=== PATIENT | male | born 1990 | race African-American/Black ===

== ENCOUNTER 2017-03-06 16:56 | Inpatient (IN) | payer SELFPAY ==
[2017-03-06] MEDS ORDERED: IOHEXOL 350 MG/ML 10 ML VIAL (for RAD DIAG) IVCONTRAST ONE (16:57)
[2017-03-06 17:00] VITALS: O2SAT 98
[2017-03-06] MEDS ORDERED: MORPHINE SULFATE 8 MG/ML INJ ONE (17:04)
[2017-03-06] MEDS ORDERED: ceFAZolin 2 GM PREMIX 50 ML ONE (17:04)
[2017-03-06] MEDS ORDERED: ONDANSETRON HCL 4 MG/2 ML VIAL ONE (17:05)
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
[2017-03-06 17:35] LABS: AUTOMATED NEUTROPHIL # 10.5 TH/MM3 (1.8-7.7); BASOPHIL # 0.1 TH/MM3 (0-0.2); BASOPHIL % 0.8 % (0.0-2.0); EOSINOPHIL # 0.6 TH/MM3 (0-0.4); EOSINOPHIL % 4.7 % (0.0-4.0); HEMATOCRIT 42.5 % (39.0-51.0); HEMO FLAGS DIFF FINAL; LYMPH % 11.6 % (9.0-44.0); LYMPHOCYTE # 1.6 TH/MM3 (1.0-4.8); MEAN CELL VOLUME 89.8 FL (80.0-100.0); MEAN CORPUSCULAR HGB CONC 33.4 % (32.0-36.0); NEUT % 76.9 % (16.0-70.0); PLATELET COUNT 241 TH/MM3 (150-450); RED BLOOD COUNT 4.73 MIL/MM3 (4.50-5.90); WHITE BLOOD COUNT 13.7 TH/MM3 (4.0-11.0)
[2017-03-06 17:38] LABS: I-STAT POTASSIUM 3.3 MMOL/L (3.5-4.9)
[2017-03-06 17:43] LABS: APTT (PATIENT) 26.5 SEC (24.3-30.1); INTERNATIONAL NORMALIZED RATIO 1.1 RATIO
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
[2017-03-06] MEDS ORDERED: ONDANSETRON HCL 4 MG/2 ML VIAL IV PRN (18:15)
[2017-03-06] MEDS ORDERED: ACETAMINOPHEN/HYDROcodone 325 MG/5 MG TAB PO PRN (18:15)
[2017-03-06] MEDS ORDERED: ENALAPRILAT 1.25 MG/ML VIAL IV PRN (18:15)
[2017-03-06] MEDS ORDERED: HYDROmorphone HCL PF 1 MG/ML VIAL IVP PRN (18:15)
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
[2017-03-06 20:04] VITALS: BP 123/78; PULSE 92; RESP 18; O2SAT 100
[2017-03-06] MEDS: SODIUM CHLOR 0.9% 1000 ML INJ 1,000 ML IV SCH (20:56)
[2017-03-06] MEDS: PANTOPRAZOLE SODIUM 40 MG VIAL IVP SCH (20:57)
[2017-03-06] MEDS: DOCUSATE SODIUM 100 MG CAP PO SCH (20:57)
[2017-03-06 21:30] VITALS: BP 133/77; PULSE 105; RESP 18; TEMP 99.3; O2SAT 99
[2017-03-06] MEDS: ACETAMINOPHEN/HYDROcodone 325 MG/5 MG TAB PO PRN (22:07)
[2017-03-06] MEDS: ceFAZolin 2 GM PREMIX 50 ML IV SCH (23:59)
[2017-03-07 00:14] VITALS: BP 112/73; PULSE 98; RESP 18; TEMP 100.4; O2SAT 96
[2017-03-07] MEDS: SODIUM CHLORIDE 0.9% FLUSH 5 ML FLUSH IVF SCH (00:14)
[2017-03-07] MEDS: GENTAMICIN 80 MG PREMIX 100 ML IV SCH ×3 (00:37→17:33)
[2017-03-07] MEDS ORDERED: METOPROLOL TARTRATE 25 MG TAB PO PRN (02:30)
[2017-03-07] MEDS ORDERED: LACTATED RINGER'S 1000 ML IV PRN (02:30)
[2017-03-07] MEDS ORDERED: SODIUM CHLORID 0.9% 500 ML IV PRN (02:30)
[2017-03-07] MEDS ORDERED: CHLORHEXIDINE GLUCONATE 2 % 1 PACK (2 CLOTHS) TOPICAL PRN (02:30)
[2017-03-07] MEDS ORDERED: INSULIN HUMAN REGULAR 1,000 UNITS/10 ML VIAL SQ PRN (02:30)
[2017-03-07] MEDS ORDERED: POVIDONE IODINE 5% (ANTISEPSIS KIT) 4 APPLICATIONS EACH NARE PRN (02:30)
[2017-03-07] MEDS: ACETAMINOPHEN/HYDROcodone 325 MG/5 MG TAB PO PRN (04:11)
[2017-03-07 04:20] VITALS: BP 119/76; PULSE 99; RESP 18; TEMP 100.3; O2SAT 98
[2017-03-07] MEDS: SODIUM CHLOR 0.9% 1000 ML INJ 1,000 ML IV SCH ×2 (04:27→12:48)
[2017-03-07 05:20] LABS: AUTOMATED NEUTROPHIL # 9.8 TH/MM3 (1.8-7.7); BASOPHIL # 0.1 TH/MM3 (0-0.2); BASOPHIL % 0.5 % (0.0-2.0); EOSINOPHIL # 0.1 TH/MM3 (0-0.4); EOSINOPHIL % 1.1 % (0.0-4.0); HEMATOCRIT 40.9 % (39.0-51.0); HEMO FLAGS DIFF FINAL; LYMPH % 6.9 % (9.0-44.0); LYMPHOCYTE # 0.8 TH/MM3 (1.0-4.8); MEAN CELL VOLUME 91.1 FL (80.0-100.0); MEAN CORPUSCULAR HEMOGLOBIN 29.1 PG (27.0-34.0); MONO % 8.7 % (0.0-8.0); NEUT % 82.8 % (16.0-70.0); PLATELET COUNT 219 TH/MM3 (150-450); RED BLOOD COUNT 4.49 MIL/MM3 (4.50-5.90); RED CELL DISTRIBUTION WIDTH 13.8 % (11.6-17.2); WHITE BLOOD COUNT 11.9 TH/MM3 (4.0-11.0)
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
[2017-03-07 05:37] LABS: ALKALINE PHOSPHATASE 122 U/L (45-117); TOTAL BILIRUBIN ADULT 0.7 MG/DL (0.2-1.0)
[2017-03-07 05:40] LABS: ALT (GPT) 22 U/L (12-78); ANION GAP 9 MEQ/L (5-15); AST (GOT) 24 U/L (15-37); BICARBONATE 25.7 MEQ/L (21.0-32.0); BLOOD UREA NITROGEN 10 MG/DL (7-18); CHLORIDE 106 MEQ/L (98-107); GLOMERULAR FILTRATION RATE 93 ML/MIN (>89); POTASSIUM 3.7 MEQ/L (3.5-5.1); SODIUM (NA) 141 MEQ/L (136-145)
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
[2017-03-07] MEDS: ceFAZolin 2 GM PREMIX 50 ML IV SCH ×2 (07:39→12:46)
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
[2017-03-07 08:00] VITALS: BP 127/79; PULSE 86; RESP 16; TEMP 99.1; O2SAT 99
[2017-03-07] MEDS ORDERED: FAMOTIDINE 20 MG/2 ML VIAL ONE (08:01)
[2017-03-07] MEDS ORDERED: DEXAMETHASONE SOD PHOS 4 MG/ML VIAL ONE (08:01)
[2017-03-07] MEDS ORDERED: GENTAMICIN SULFATE 80 MG/2 ML VIAL ONE (08:21)
[2017-03-07] MEDS: DOCUSATE SODIUM 100 MG CAP PO SCH (09:00)
[2017-03-07] MEDS: LACTATED RINGER'S 1000 ML INJ 1,000 ML IV SCH ×2 (09:46→10:30)
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
[2017-03-07] MEDS ORDERED: Post-op Orders (for Pharmacy) MISC XX ONE (10:00)
[2017-03-07] MEDS ORDERED: MORPHINE SULFATE 4 MG/ML INJ IV PUSH PRN (10:00)
[2017-03-07] MEDS ORDERED: NALOXONE HCL 0.4 MG/ML AMP IV PRN (10:00)
[2017-03-07] MEDS ORDERED: SODIUM CHLORIDE 0.9% FLUSH 5 ML FLUSH IVF PRN (10:00)
[2017-03-07] MEDS ORDERED: fentaNYL CITRATE 250 MCG/5 ML AMP ONE (10:23)
[2017-03-07] MEDS ORDERED: MIDAZOLAM HCL 2 MG/2 ML VIAL ONE (10:23)
[2017-03-07] MEDS ORDERED: *morphine SULFATE 8 MG/ML PERIprocedure ONLY ONE (10:28)
[2017-03-07 12:00] VITALS: BP 122/87; PULSE 95; RESP 16; TEMP 98.9; O2SAT 100
[2017-03-07] MEDS ORDERED: DO NOT ADM ANY ANTICOAGULANT DRUGS PRN (12:00)
[2017-03-07] MEDS: ACETAMINOPHEN/HYDROcodone 325 MG/10 MG TAB PO PRN ×2 (12:47→18:36)
[2017-03-07] MEDS: CALCIUM/VITAMIN D 250 MG/125 U TAB PO SCH ×2 (12:47→17:33)
[2017-03-07] MEDS ORDERED: PROPOFOL 200 MG/20 ML AMP IV ONE (13:42)
[2017-03-07] MEDS ORDERED: LACTATED RINGER'S 1000 ML INJ 1,000 ML IV ONE (13:42)
[2017-03-07] MEDS ORDERED: NEOSTIGMINE 3 MG/3 ML SYR IV ONE (13:42)
[2017-03-07] MEDS ORDERED: ONDANSETRON HCL 4 MG/2 ML VIAL IV PUSH ONE (13:42)
--- NOTE | 2017-03-07 15:46 | RADRPT ---
EXAM DATE/TIME: 03/07/2017 09:37 [facility] COMPARISON: No previous studies available for comparison. INDICATIONS : Right femur retrograde nailing. OR. MEDICAL HISTORY : None. SURGICAL HISTORY : None. ENCOUNTER: Initial ACUITY: 1 day PAIN SCORE: Non-responsive. LOCATION: Right femur FINDINGS: 7 magnified C-arm spot views are centered over the femur and labeled right. There is an intramedullar y olu with multiple proximal and distal anchoring screws. This traverses a distal femoral metadiaphys eal fracture with good alignment. CONCLUSION: Limited images are detailed above. Adriano Camilo Jr., MD on March 07, 2017 at 15:43 Board Certified Radiologist. This report was verified electronically.
[2017-03-07 16:00] VITALS: BP 136/68; PULSE 114; RESP 16; TEMP 98.9; O2SAT 100
[2017-03-07] MEDS: PANTOPRAZOLE SODIUM 40 MG VIAL IVP SCH (17:33)
[2017-03-07 20:10] VITALS: BP 128/76; PULSE 110; RESP 18; TEMP 99.1; O2SAT 99
[2017-03-08] VITALS (8 sets, daily range): BP systolic 118–140; BP diastolic 61–85; PULSE 97–115; RESP 18–20; TEMP 98.2–100.5; O2SAT 98–100
[2017-03-08] MEDS: ceFAZolin 2 GM PREMIX 50 ML IV SCH ×4 (00:12→20:03)
[2017-03-08] MEDS: DOCUSATE SODIUM 100 MG CAP PO SCH (00:13)
[2017-03-08] MEDS: ACETAMINOPHEN/HYDROcodone 325 MG/10 MG TAB PO PRN ×5 (00:13→20:45)
[2017-03-08] MEDS: SODIUM CHLOR 0.9% 1000 ML INJ 1,000 ML IV SCH (00:26)
[2017-03-08] MEDS: GENTAMICIN 80 MG PREMIX 100 ML IV SCH ×3 (01:12→17:00)
[2017-03-08] MEDS ORDERED: HYDR-3580 PO (06:14)
[2017-03-08] MEDS ORDERED: XARE10TA PO (06:14)
[2017-03-08] MEDS ORDERED: WALKER/ADULT/FO1 MIS (06:14)
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
--- NOTE | 2017-03-08 06:37 | HHI.FF ---
Face to Face Verification Diagnosis: (1) Tibial fracture (2) Femur fracture, right Physical Therapy Gait training Knee: Knee fracture, Protocol: Right, Non weight bearing Canvas Knee Splint: Other (range of motion knee brace at all times. unlocked at 0-90deg) Right LE Weight Bearing: Non WB, No Strengthening, No Quad Sets Right LE Range of Motion: Passive ROM (0-90deg) Nursing Dressing Changes: Daily dressing change, Geraldo wrap, 4x4s, Xeroform I have seen patient Klaus Kim on 03/08/17. My clinical findings support the need for the requested home health care services because: Ltd mobility - disease progression I certify that my clinical findings support that this patient is homebound because: Post-op weakness Jean Conroy Mar 08, 2017 06:37
[2017-03-08] MEDS ORDERED: LACTULOSE SYRUP 20 GM/30 ML CUP PO PRN (07:30)
[2017-03-08 07:53] LABS: HEMATOCRIT 33.4 % (39.0-51.0); REVIEW FLAG FINAL
[2017-03-08] MEDS: DOCUSATE SODIUM 50 MG/SENNA 8.6 MG TAB PO SCH ×2 (08:31→20:46)
[2017-03-08] MEDS: CALCIUM/VITAMIN D 250 MG/125 U TAB PO SCH ×3 (08:31→17:49)
[2017-03-08] MEDS: ENOXAPARIN SODIUM 40 MG/0.4 ML SYRINGE SQ SCH (08:32)
[2017-03-08] MEDS: SODIUM CHLORIDE 0.9% FLUSH 5 ML FLUSH IVF SCH ×2 (08:32→20:47)
[2017-03-08] MEDS ORDERED: CRUTMIS25 (12:32)
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
[2017-03-08] MEDS: SODIUM CHLORIDE 0.9% FLUSH 10 ML FLUSH IV FLUSH PRN (20:45)
[2017-03-09] MEDS: GENTAMICIN 80 MG PREMIX 100 ML IV SCH ×2 (00:09→10:41)
[2017-03-09 04:15] VITALS: BP 128/82; PULSE 114; RESP 17; TEMP 99.6; O2SAT 99
[2017-03-09] MEDS: ceFAZolin 2 GM PREMIX 50 ML IV SCH (04:58)
[2017-03-09] MEDS: ACETAMINOPHEN/HYDROcodone 325 MG/10 MG TAB PO PRN ×3 (05:08→18:20)
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
[2017-03-09 08:00] VITALS: BP 117/72; PULSE 106; RESP 18; TEMP 97.9; O2SAT 97
[2017-03-09 08:10] LABS: HEMATOCRIT 32.3 % (39.0-51.0); REVIEW FLAG FINAL
[2017-03-09] MEDS ORDERED: SENN1TAB PO (08:36)
[2017-03-09] MEDS: SODIUM CHLORIDE 0.9% FLUSH 5 ML FLUSH IVF SCH (09:00)
[2017-03-09 10:29] VITALS: O2SAT 95
[2017-03-09] MEDS: ENOXAPARIN SODIUM 40 MG/0.4 ML SYRINGE SQ SCH (10:40)
[2017-03-09] MEDS: DOCUSATE SODIUM 50 MG/SENNA 8.6 MG TAB PO SCH (10:40)
[2017-03-09] MEDS: CALCIUM/VITAMIN D 250 MG/125 U TAB PO SCH ×3 (10:40→18:20)
[2017-03-09] MEDS: SODIUM CHLORIDE 0.9% FLUSH 10 ML FLUSH IV FLUSH PRN (10:41)
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
[2017-03-09 12:00] VITALS: BP_SYST 128; BP_SYST 134; BP_DIAS 66; BP_DIAS 75; PULSE 121; PULSE 86; RESP 17; RESP 18; TEMP 96.5; TEMP 98.1; O2SAT 96; O2SAT 99
[2017-03-09 16:00] VITALS: BP 120/70; PULSE 111; RESP 18; TEMP 98.1; O2SAT 99
== END 2017-03-09 18:58 | disposition home or self-care (01) | DRG 480 ==
LOC: NEPI 16:56 → NEDA 18:58 → EEVIPCON 18:58 → N06B 21:25
PROVIDERS: ADMIT Surgery; ATTEND Surgery
PROC: 0QSB06Z Reposition Right Lower Femur with Intramedullary Internal Fixation Device, Open Approach (ICD-10-PCS; principal; 2017-03-07 08:14)
DX: S72.331 Displaced oblique fracture of shaft of right femur (principal); S82.141B Displaced bicondylar fracture of right tibia, initial encounter for open fracture type I or II; S83.8X1A Sprain of other specified parts of right knee, initial encounter; X95.9XXA Assault by unspecified firearm discharge, initial encounter; Y92.008 Other place in unspecified non-institutional (private) residence as the place of occurrence of the external cause
CPT/HCPCS: 71010; 72170; 73551; 73552; 75635; 76000; 80053; 82435; 82565; 82947; 84132; 84295; 84520; 85014; 85018; 85025; 85610; 85730; 86850; 86900; 86901; 90471; 94150; 96374; 96375; 99291; C1713; C1769; C9113; E0113; G0390; J0690; J1100; J1580; J1650; J2250; J2270; J2405; J2710; J3010; J7030; J7120; L1845; Q9967

== ENCOUNTER 2017-09-26 19:30 | Emergency (ER) | payer SELFPAY ==
[~2017-09-26] VITALS: Ht 165.1 cm; Wt 70.5 kg
[~2017-09-26 19:30] MED LIST: CRUTMIS25; HYDR-3580 PO; SENN1TAB PO; WALKER/ADULT/FO1 MIS; XARE10TA PO
[2017-09-26 19:34] VITALS: BP 142/92; PULSE 86; RESP 18; TEMP 97.4; O2SAT 100
[2017-09-26] MEDS ORDERED: FLUT1SPR5 EACH NARE (20:27)
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
== END 2017-09-26 20:41 | disposition home or self-care (01) ==
LOC: NEPK 19:30
DX: J31.0 Chronic rhinitis (principal)
CPT/HCPCS: 99283